=== PATIENT | male | born 1980 | race African-American/Black ===

== ENCOUNTER 2025-04-28 05:18 | Emergency (ER) | payer SELFPAY ==
[~2025-04-28] VITALS: Ht 180.3 cm; Wt 91.0 kg
[2025-04-28 05:28] VITALS: O2SAT 98
[2025-04-28 05:30] VITALS: BP 133/83; RESP 18; TEMP 36.9; O2SAT 98
[2025-04-28 05:59] VITALS: PULSE 88
[2025-04-28] MEDS ORDERED: CEPH500C2 MT (06:06)
[2025-04-28] MEDS ORDERED: SULF1TAB48 MT (06:06)
== END 2025-04-28 06:23 | disposition home or self-care (01) ==
LOC: ER 05:18
DX: L02.31 Cutaneous abscess of buttock (principal)
CPT/HCPCS: 99283